=== PATIENT | male | born 1990 | race American Indian/Alaskan Native ===

== ENCOUNTER 2017-08-02 13:31 | Emergency (ER) | payer SELFPAY ==
[2017-08-02] MEDS ORDERED: TYLENOL ONE (13:48)
[2017-08-02] MEDS ORDERED: TYLENOL PO ONE (13:52)
[2017-08-02] MEDS ORDERED: DELTASONE PO ONE (20:36)
[2017-08-02] MEDS ORDERED: ROBITUSSIN PO ONE (20:36)
--- NOTE | 2017-08-02 20:59 | Emergency Department Report ---
Minor Respiratory - HPI Chief Complaint: Fever Stated Complaint: HEAD/BODYACHES/STUFFY NOSE Time Seen by Provider: 08/02/17 20:08 Duration: 1 Day Severity: moderate Minor Respiratory: Yes Rhinorrhea, Yes Able to Tolerate Fluids, Yes Cough, Yes Fever, No Sore Throat, No Ear Pain, No Sick Contacts, No Hemoptysis, No Chest Pain, No Shortness of Breath Other History: 27-year-old male presents to the ED complaining of fever, cough, generalized body aches times one day. Patient states his knees. Develop symptoms again today sentences of the words. Patient describes intermittent dry cough with mild runny nose. He denies dysuria, nausea, vomiting, abdominal pain, constipation or diarrhea. ED Review of Systems ROS: Stated complaint: HEAD/BODYACHES/STUFFY NOSE Other details as noted in HPI Constitutional: fever. denies: chills Eyes: denies: eye pain, eye discharge, vision change ENT: denies: ear pain, throat pain Respiratory: cough. denies: shortness of breath, wheezing Cardiovascular: denies: chest pain, palpitations Endocrine: no symptoms reported Gastrointestinal: denies: abdominal pain, nausea, diarrhea Genitourinary: denies: urgency, dysuria Musculoskeletal: denies: back pain, joint swelling, arthralgia Skin: denies: rash, lesions Neurological: denies: headache, weakness, paresthesias Psychiatric: denies: anxiety, depression Hematological/Lymphatic: denies: easy bleeding, easy bruising ED Past Medical Hx - Past Medical History Previous Medical History?: No - Surgical History Past Surgical History?: No - Social History Smoking Status: Never Smoker Substance Use Type: None - Medications Home Medications: Home Medications Medication Instructions Recorded Confirmed Last Taken Type D-Methorphan/PE/Acetaminophen 1 each PO Q6H #24 tablet 08/02/17 Unknown Rx [Tylenol Cold Max Day Caplet] Ibuprofen [Motrin] 600 mg PO Q8H PRN #30 tablet 08/02/17 Unknown Rx guaiFENesin [Robitussin] 200 mg PO TID #100 ml 08/02/17 Unknown Rx Minor Respiratory Exam - Exam General: Vital signs noted. No distress. Alert and acting appropriately. Neurologic: Alert and oriented, no deficits. Musculoskeletal: Unremarkable. ED Course Vital Signs 08/02/17 08/02/17 13:49 20:34 Temperature 102.6 F H 102.1 F H Pulse Rate 108 H 115 H Respiratory 20 18 Rate Blood Pressure 115/72 Blood Pressure 120/64 [Left] O2 Sat by Pulse 97 98 Oximetry ED Medical Decision Making - Radiology Data Radiology results: report reviewed, image reviewed FINAL REPORT EXAM: XR CHEST ROUTINE 2V HISTORY: fever/cough TECHNIQUE: Two views of the chest Comparison: None FINDINGS: Normal heart size. Lungs are clear and well expanded without focal infiltrate or consolidation. There is no effusion. The imaged axial skeleton is unremarkable. IMPRESSION: No acute cardiopulmonary disease. Transcribed By: PARTH Dictated By: LIMA VILLA Electronically Authenticated By: LIMA VILLA Signed Date/Time: 08/02/17 1802 - Medical Decision Making 27-year-old male presents with flulike symptoms. Fever resolved and reduced to 99.4 prior to discharge. Chest x-ray, urinalysis ordered. Chest x-ray was negative Urinalysis negative. Discussed symptomatic relief with [id number] medications. Discussed continue Tylenol and Motrin as needed for fever and pain. Discussed increase fluids and diet intake. Discussed rest much needed. Discussed daily vitamin C for immune booster. 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 Patient verbally states she understands and will comply the following instructions and follow-up Vital signs stable. Patient is in no acute distress Critical care attestation.: If time is entered above; I have spent that time in minutes in the direct care of this critically ill patient, excluding procedure time. ED Disposition Clinical Impression: Viral syndrome URI (upper respiratory infection) Qualifiers: URI type: unspecified URI Qualified Code(s): J06.9 - Acute upper respiratory infection, unspecified Disposition: DC-01 TO HOME OR SELFCARE Is pt being admited?: No Does the pt Need Aspirin: No Condition: Stable Instructions: Upper Respiratory Infection (ED), Viral Syndrome (ED) Additional Instructions: Make sure to follow up with the primary care physician as discussed. Take all your medications as you've been prescribed. If you have any worsening symptoms or develop new symptoms please return to ED immediately.e Prescriptions: D-Methorphan/PE/Acetaminophen [Tylenol Cold Max Day Caplet] 1 each PO Q6H #24 tablet guaiFENesin [Robitussin] 200 mg PO TID #100 ml Ibuprofen [Motrin] 600 mg PO Q8H PRN #30 tablet PRN Reason: Pain Referrals: KYLEE WHITMORE MD [Primary Care Provider] - 3-5 Days [facility] [Outside] - 3-5 Days [facility] [Outside] - 3-5 Days Forms: Work/School Release Form(ED) Time of Disposition: 00:16
[2017-08-02] MEDS ORDERED: MOTRIN PO ONE (21:04)
--- NOTE | 2017-08-02 22:06 | XRay Report ---
FINAL REPORT EXAM: XR CHEST ROUTINE 2V HISTORY: fever/cough TECHNIQUE: Two views of the chest Comparison: None FINDINGS: Normal heart size. Lungs are clear and well expanded without focal infiltrate or consolidation. There is no effusion. The imaged axial skeleton is unremarkable. IMPRESSION: No acute cardiopulmonary disease.
[2017-08-03 00:05] LABS: Bilirubin,Urine NEG (Negative); Blood,Urine NEG (Negative); Color,Urine Yellow (Yellow); Nitrite,Urine NEG (Negative); Protein,Urine <15 mg/dL mg/dL (Negative); RBC,Urine < 1.0 /HPF (0.0-6.0); Urobilinogen,Urine < 2.0 mg/dL (<2.0)
[2017-08-03 06:11] VITALS: BP 112/56
== END 2017-08-03 00:20 | disposition home or self-care (01) ==
LOC: ED 13:31
DX: B34.9 Viral infection, unspecified (principal); J06.9 Acute upper respiratory infection, unspecified
CPT/HCPCS: 71046; 81001; 87400; 99284; J7512